=== PATIENT | female | born 1985 ===

== ENCOUNTER 2017-08-17 11:12 | Emergency (ER) | payer OTHER ==
[2017-08-17 11:28] VITALS: BP 101/67
[2017-08-17 16:27] LABS: ABS Basophils 0.1 10^3/ul (0-0.2); ABS Eosinophils 0.1 10^3/ul (0-0.6); ABS Lymphocytes 1.8 10^3/ul (1.0-4.8); ABS Monocytes 0.3 10^3/ul (0-0.8); ABS Neutrophils 2.2 10^3/ul (1.5-7.7); ABS Nucleated RBC 0 10^3/ul; Eosinophil % 1.9 % (0-6); Hematocrit 43 % (35-47); Hemoglobin 14.3 g/dl (12.0-16.0); Lymphocyte % 39.9 % (25-47); Mean Corpuscular HGB Conc 34 g/dl (31-36); Mean Corpuscular Hemoglobin 33 pg (27-31); Mean Corpuscular Volume 98 fL (80-97); Mean Platelet Volume 8 um3 (7.4-10.4); Nucleated Red Blood Cells % 0.1; Platelet Count 201 10^3/ul (150-450); Red Blood Count 4.36 10^6/ul (4.0-5.4); Red Cell Distribution Width 13 % (10.5-15); White Blood Count 4.5 10^3/ul (3.5-10.8)
[2017-08-17 17:15] LABS: EGFR Non-African American 81.4 (>60)
--- NOTE | 2017-08-20 10:12 | UC ---
- Progress Note Progress Note: call patient. lyme (-). EBV IGG (+), IGM (-). NO ACUTE EBV. IF WORSE THEN GO TO ER.
--- NOTE | 2017-08-25 07:21 | UC ---
Vicente Field Angela, scribed for Consuelo Galvez MD on 08/17/17 at 1200 . General HPI - HPI Summary HPI Summary: This pt is a 32 y/o female presenting to [facility] c/o fatigue and body aches, decreased energy since 08/12/17. Pt reports her symptoms have been worsening, feeling more exhausted and achy (mostly on her arms, back, and shoulders). Additionally c/o some rhinorrhea, headache, mild sore throat. She reports that all she wants to do is sleep. Denies diarrhea, constipation, cough, dysuria, urinary frequency, urinary urgency, rash. Pt has not been bitten recently by a tick. She notes that she has had these symptoms for half of the school semester (approx 1.5 months). Pt has been checked for thyroid disease in March 2017, which resulted negative. Denies PMHx of mono. 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 LMP: . Pt is currently on control. - History of Current Complaint Chief Complaint: UCGeneralIllness Stated Complaint: BODYACHES, TIREDNESS, DIZZY Time Seen by Provider: 08/17/17 11:49 Hx Obtained From: Patient Hx Last Menstrual Period: 08/10/17 Onset/Duration: Gradual Onset, Lasting Days, Still Present Timing: Constant Current Severity: Moderate Associated Signs & Symptoms: Positive: Headache, Other - POS: fatigue, body aches, rhinorrhea, sore throat. NEG: constipation, dysuria, urinary frequency, urinary urgency, rash.. Negative: Cough, Diarrhea, Nausea, Vomiting - Allergy/Home Medications Allergies/Adverse Reactions: Allergies Allergy/AdvReac Type Severity Reaction Status Date / Time Chestnuts Allergy Hives Uncoded 08/17/17 11:28 Home Medications: Home Medications Levonorgestrel-Ethinyl Estradi [Levonorgestrel/Ethinyl Es 0.15-0.03 mg] 1 tab PO DAILY 08/17/17 [History Confirmed 08/17/17] buPROPion SR TAB* [Wellbutrin SR TAB*] 100 mg PO DAILY 08/17/17 [History Confirmed 08/17/17] PMH/Surg Hx/FS Hx/Imm Hx - Additional Past Medical History Additional PMH: PMHx: CMV, premature ovarian failure Other Endocrine History: DENIES: diabetes Other Cardiovascular History: DENIES: HTN - Surgical History Surgical History: None - Family History Known Family History: Positive: Other - thyroid disease - Social History Occupation: Student - at [employer] Alcohol Use: Occasionally Substance Use Type: None Smoking Status (MU): Never Smoked Tobacco - Immunization History Most Recent Influenza Vaccination: 04/2017 Review of Systems Constitutional: Fatigue, Other - POS: body aches NEG: fever, chills Skin: Negative ENT: Sore Throat, Nasal Discharge - some rhinorrhea Respiratory: Negative Cardiovascular: Negative Gastrointestinal: Negative Genitourinary: Negative Motor: Negative Neurovascular: Negative Musculoskeletal: Myalgia Neurological: Headache Psychological: Negative Is Patient Immunocompromised?: No All Other Systems Reviewed And Are Negative: Yes Physical Exam Triage Information Reviewed: Yes Appearance: Well-Nourished - sitting up, conversing easily and appropriately. NAD. Non-diaphoretic, non-toxic appearance. Looks a little tired. Vital Signs: Initial Vital Signs Temp 98.6 F 08/17/17 11:17 Pulse 76 08/17/17 11:17 Resp 16 08/17/17 11:17 BP 101/67 08/17/17 11:17 Pulse Ox 100 08/17/17 11:17 Vital Signs Reviewed: Yes Eye Exam: Normal ENT: Positive: Pharyngeal erythema - mild red, no sores, airway patent, TM dull - mild rtx'd tm au (L>R) Neck exam: Normal Neck: Positive: Supple, Nontender, No Lymphadenopathy Respiratory Exam: Normal Respiratory: Positive: Chest non-tender, Lungs clear, Normal breath sounds, No respiratory distress, No accessory muscle use Cardiovascular Exam: Normal Cardiovascular: Positive: RRR, No Murmur, Pulses Normal, Brisk Capillary Refill Abdominal Exam: Normal Abdomen Description: Positive: Nontender, No Organomegaly, Soft Bowel Sounds: Positive: Present Musculoskeletal Exam: Normal Musculoskeletal: Positive: Strength Intact Neurological Exam: Normal - nonfocal, grossly intact facial expressions grossly intact Psychological Exam: Normal - conversing easily and appropriately Skin Exam: Normal - no visible or reported rash, denies hx rash. Course/Dx - Course Course Of Treatment: ucg neg. urine dip nad. ordered blood work. cbc, cmp, lyme, mono / ebv, tsh. F/u pcp in [facility] - Differential Dx - Multi-Symptom Provider Diagnoses: fatigue, weakness. consider viral but c/n exclude other etiology. f/u pcp. Discharge - Discharge Plan Condition: Stable Disposition: HOME Patient Education Materials: Weakness (ED) Referrals: No Primary Care Phys,NOPCP [Primary Care Provider] - Additional Instructions: Follow up with your primary care physician in [facility] upon return home. Seek medical attention for worse or new problems in the meantime. The documentation as recorded by the Vicente terry Angela accurately reflects the service I personally performed and the decisions made by me, Consuelo Galvez MD.
== END 2017-08-17 13:04 | disposition home or self-care (01) ==
LOC: UCEAST 11:12
DX: R53.83 Other fatigue (principal); R53.1 Weakness; R51 Headache; M79.1 Myalgia; J34.89 Other specified disorders of nose and nasal sinuses; J02.9 Acute pharyngitis, unspecified; Z32.02 Encounter for pregnancy test, result negative; E28.39 Other primary ovarian failure
CPT/HCPCS: 36415; 80053; 81003; 81025; 82784; 84443; 85025; 86308; 86618; 86664; 86665; 99211; G0463